=== PATIENT | female | born 1980 | race Caucasian/White ===

== ENCOUNTER 2017-02-25 08:32 | Emergency (ER) | payer SELFPAY ==
[~2017-02-25] VITALS: Wt 75.0 kg
[2017-02-25] MEDS ORDERED: FOLIC ACID 1 MG, THIAMINE 100 MG, MULTIVITAMINS 10 ML, MAGNESIUM SULFATE 2 GM in SOD CH... IV STA (08:58)
[2017-02-25] MEDS ORDERED: LORAZEPAM 2 MG INJ IV STA (08:58)
[2017-02-25] MEDS ORDERED: SOD CHLORIDE 0.9% 1,000 ML IV STA (08:58)
[2017-02-25 09:25] LABS: BASOPHILS % 0.6 % (0.0-2.0); EOSINOPHILS # 0.1 10^3/ul (0.0-0.5); EOSINOPHILS % 2.4 % (0.0-7.0); HEMATOCRIT 41.8 % (37.0-47.0); HEMOGLOBIN 14.7 g/dl (12.0-16.0); LYMPHOCYTES # 1.2 10^3/ul (0.8-2.9); LYMPHOCYTES % 23.2 % (15.0-51.0); MEAN CORPUSCULAR HEMOGLOBIN 35.8 pg (29.0-33.0); MEAN CORPUSCULAR HGB CONC 35.2 g/dl (32.0-37.0); MEAN CORPUSCULAR VOLUME 101.7 fl (82.0-101.0); MEAN PLATELET VOLUME 9.5 fl (7.4-10.4); MONOCYTE # 0.6 10^3/ul (0.3-0.9); MONOCYTES % 11.3 % (0.0-11.0); NEUTROPHIL # 3.2 10^3/ul (1.6-7.5); NEUTROPHILS % 62.3 % (39.0-77.0); PLATELET COUNT 274 10^3/UL (140-415); RED BLOOD COUNT 4.11 10^6/ul (4.20-5.40); RED CELL DISTRIBUTION WIDTH 11.7 % (11.5-14.5); WHITE BLOOD COUNT 5.1 10^3/ul (4.8-10.8)
[2017-02-25 09:29] LABS: ADD UMIC YES; UR ASCORBIC ACID NEGATIVE (NEGATIVE); UR BACTERIA FEW /HPF (NONE SEEN); UR BILIRUBIN (Dip) NEGATIVE (NEGATIVE); UR BLOOD (Dip) 2+ mg/dL (NEGATIVE); UR CLARITY CLEAR (CLEAR); UR COLOR YELLOW (YELLOW); UR GLUCOSE (Dip) NEGATIVE (NEGATIVE); UR KETONES (Dip) NEGATIVE (NEGATIVE); UR LEUKOCYTE ESTERASE (Dip) NEGATIVE Leu/ul (NEGATIVE); UR NITRITE (Dip) NEGATIVE (NEGATIVE); UR RBC 0 /HPF (0-5); UR SPECIFIC GRAVITY (Dip) 1.014 (1.003-1.030); UR SQUAMOUS EPITHELIAL CELL FEW /HPF (FEW); UR TOTAL PROTEIN (Dip) NEGATIVE (NEGATIVE); UR UROBILINOGEN (Dip) NEGATIVE (NEGATIVE)
[2017-02-25 09:51] LABS: ALBUMIN 4.9 g/dl (3.3-4.9); ALBUMIN/GLOBULIN RATIO 1.44; BILIRUBIN,INDIRECT 0.3 mg/dl (0-1.1); BILIRUBIN,TOTAL 0.3 mg/dl (0.2-1.3); CALCIUM 9.7 mg/dl (8.4-10.2); CREATININE 0.79 mg/dl (0.44-1.00); TOTAL PROTEIN 8.3 g/dl (6.1-8.1)
[2017-02-25] MEDS ORDERED: CHLO25CA9 PO (12:40)
[2017-02-25] MEDS ORDERED: THIA100T10 PO (12:40)
[2017-02-25 12:54] VITALS: BP 129/89; PULSE 88; RESP 20; TEMP 98
--- NOTE | 2017-02-25 12:55 | ERD ---
ER Documentation Chief Complaint Chief Complaint SHAKING, NUMBNESS, PT ALCOHOLIC HPI 36-year-old alcoholic female presenting with complaints of paresthesias. She states that she has been an alcoholic for the past 2 years. She drinks mostly because she cannot go without alcohol without feeling very shaky and anxious. For the past few weeks she has had some tingling and pins and needles sensations in her hands, her feet, and her lips. This makes her even more anxious. Her last drink was this morning. She drank a bottle of tequila. She also sees "flickering" in her vision at times. She denies double vision, headache, dizziness, chest pain, shortness of breath, back pain, or change in urinary or bowel habits. She states she has been going to AA for the past 6 months but has not been helping her problem. She is looking for resources for detox. ROS All systems reviewed and are negative except as per history of present illness. Medications Home Meds Active Scripts Chlordiazepoxide* (Chlordiazepoxide*) 25 Mg Capsule, 25 MG PO DAILY, #15 CAP Take 50mg on Day 1 q6h, then 25 mg q6h on Day2. 25mg Q12h on Day3. 25mg once at night on day 4. Prov:JEAN BOWLING MD 02/25/17 Thiamine* (Thiamine*) 100 Mg Tablet, 100 MG PO DAILY, #20 TAB Prov:JEAN BOWLING MD 02/25/17 Allergies Allergies: Coded Allergies: No Known Allergy (Unverified , 02/25/17) PMhx/Soc Medical and Surgical Hx: pt denies Medical Hx, pt denies Surgical Hx History of Surgery: No Anesthesia Reaction: No Hx Neurological Disorder: No Hx Respiratory Disorders: No Hx Cardiac Disorders: No Hx Psychiatric Problems: No Hx Miscellaneous Medical Probl: Yes (alcoholism) Hx Alcohol Use: Yes Hx Substance Use: No Hx Tobacco Use: No Smoking Status: Never smoker FmHx Family History: No diabetes Physical Exam Vitals Vital Signs Date Time Temp Pulse Resp B/P Pulse Ox O2 Delivery O2 Flow Rate FiO2 02/25/17 12:54 98.0 88 20 129/89 97 02/25/17 08:35 97.8 101 18 137/101 97 Physical Exam Const: Tearful, nontoxic, tremulous Head: Atraumatic Eyes: Normal Conjunctiva, PERRLA, EOMI, no nystagmus ENT: Normal External Ears, Nose and Mouth. Neck: Full range of motion..~ No meningismus. Resp: Clear to auscultation bilaterally Cardio: Regular rate and rhythm, no murmurs Abd: Soft, non tender, non distended. Normal bowel sounds Skin: No petechiae or rashes Back: No midline or flank tenderness Ext: No cyanosis, or edema Neur: Awake and alert, oriented 3, cranial nerves intact, strength and sensations intact in all 4 extremities. Gait and balance normal. Normal speech. No asterixis. Psych: depressed Mood and Affect, No HI or SI, no hallucinations Result Diagram: 02/25/1791002/25/17910 Results 24 hrs Laboratory Tests Test 02/25/17 09:11 02/25/17 09:15 02/25/17 09:28 White Blood Count 5.110^3/ul Red Blood Count 4.1110^6/ul Hemoglobin 14.7g/dl Hematocrit 41.8% Mean Corpuscular Volume 101.7fl Mean Corpuscular Hemoglobin 35.8pg Mean Corpuscular Hemoglobin Concent 35.2g/dl Red Cell Distribution Width 11.7% Platelet Count 57395^3/UL Mean Platelet Volume 9.5fl Neutrophils % 62.3% Lymphocytes % 23.2% Monocytes % 11.3% Eosinophils % 2.4% Basophils % 0.6% Nucleated Red Blood Cells % 0.0/100WBC Neutrophils # 3.210^3/ul Lymphocytes # 1.210^3/ul Monocytes # 0.610^3/ul Eosinophils # 0.110^3/ul Basophils # 0.010^3/ul Nucleated Red Blood Cells # 0.010^3/ul Sodium Level 143mmol/L Potassium Level 4.0mmol/L Chloride Level 102mmol/L Carbon Dioxide Level 26mmol/L Anion Gap 19 Blood Urea Nitrogen 10mg/dl Creatinine 0.79mg/dl Glucose Level 94mg/dl Calcium Level 9.7mg/dl Total Bilirubin 0.3mg/dl Direct Bilirubin 0.00mg/dl Indirect Bilirubin 0.3mg/dl Aspartate Amino Transf (AST/SGOT) 151IU/L Alanine Aminotransferase (ALT/SGPT) 114IU/L Alkaline Phosphatase 84IU/L Total Protein 8.3g/dl Albumin 4.9g/dl Globulin 3.40g/dl Albumin/Globulin Ratio 1.44 Urine Color YELLOW Urine Clarity CLEAR Urine pH 8.0 Urine Specific Bells 1.014 Urine Ketones NEGATIVEmg/dL Urine Nitrite NEGATIVEmg/dL Urine Bilirubin NEGATIVEmg/dL Urine Urobilinogen NEGATIVEmg/dL Urine Leukocyte Esterase NEGATIVELeu/ul Urine Microscopic RBC 0/HPF Urine Microscopic WBC 1/HPF Urine Squamous Epithelial Cells FEW/HPF Urine Bacteria FEW/HPF Urine Hemoglobin 2+mg/dL Urine Glucose NEGATIVEmg/dL Urine Total Protein NEGATIVEmg/dl Bedside Glucose 92mg/dL Current Medications Medications (Trade) Dose Ordered Sig/Mindi Route PRN Reason Start Time Stop Time Status Last Admin Dose Admin Lorazepam 1 mg 1 mg ONCE STAT IV 02/25/17 08:58 02/25/17 09:04 DC 02/25/17 09:20 Folic Acid 1 mg/ Thiamine HCl 100 mg/Multivitamins 10 ml/Magnesium Sulfate 2 gm/ Sodium Chloride 1,015.2 ml @ 500 mls/ hr Q2H2M STAT IV 02/25/17 08:58 02/25/17 10:59 DC 02/25/17 10:07 Sodium Chloride (NS) 1,000 ml @ 1,000 mls/hr Q1H STAT IV 02/25/17 08:58 02/25/17 09:57 DC 02/25/17 09:23 Procedures/MDM Labs CBC: no anemia or evidence of infection. MCV elevated CMP: Mild transaminitis. No evidence of electrolyte abnormality, renal failure , hypoglycemia, liver failure, or biliary obstruction Urinalysis with microscopic hematuria, no evidence of infection Urine negative MDM Patient is presenting with signs of mild alcohol withdrawal and paresthesias, which may be secondary to vitamin deficiency secondary to chronic alcoholism. There is no evidence of Wernicke-Korsakoff syndrome. I do not suspect acute stroke. Patient's labs were essentially unremarkable other than a mild transaminitis, likely secondary to alcoholic hepatitis. The patient was treated with IV fluids that included magnesium, thiamine, and multivitamins. She was also treated with Ativan IV with improvement of her symptoms. She states she feels much less tremulous after the Ativan with improvement of her paresthesias. I had the social human services assistants talk to the patient regarding resources outpatient for detox. I believe the patient is stable for discharge at this time. I offered her a prescription for Librium and thiamine, which she was agreeable to. Return precautions were discussed. Departure Diagnosis: Primary Impression: Paresthesias Additional Impression: Chronic alcohol abuse Condition: Stable Patient Instructions: Alcohol Addiction, Paraesthesias Referrals: COMMUNITY CLINICS YOU HAVE RECEIVED A MEDICAL SCREENING EXAM AND THE RESULTS INDICATE THAT YOU DO NOT HAVE A CONDITION THAT REQUIRES URGENT TREATMENT IN THE EMERGENCY DEPARTMENT. FURTHER EVALUATION AND TREATMENT OF YOUR CONDITION CAN WAIT UNTIL YOU ARE SEEN IN YOUR DOCTORS OFFICE WITHIN THE NEXT 1-2 DAYS. IT IS YOUR RESPONSIBILITY TO MAKE AN APPOINTMENT FOR FOLOW-UP CARE. IF YOU HAVE A PRIMARY DOCTOR --you should call your primary doctor and schedule an appointment IF YOU DO NOT HAVE A PRIMARY DOCTOR YOU CAN CALL OUR PHYSICIAN REFERRAL HOTLINE AT IF YOU CAN NOT AFFORD TO SEE A PHYSICIAN YOU CAN CHOSE FROM THE FOLLOWING [facility] [address] [facility] [address] [facility] [address] [facility] [address] [facility] [address] [facility] [facility] [address] [facility]. [facility] [address] [facility]. [facility] [address] Additional Instructions: Follow up wih the Ouptatient resources you were given for outpatient and inpatient Detox programs. Return to the ER for worsening symptoms. JEAN BOWLING MD Feb 25, 2017 12:54
== END 2017-02-25 12:55 | disposition home or self-care (01) ==
LOC: E/R 08:32
DX: R20.2 Paresthesia of skin (principal); F10.10 Alcohol abuse, uncomplicated
CPT/HCPCS: 36415; 80053; 81001; 82962; 85025; 96374; 96375; 99284; J2060; J3411; J3475; J7030